=== PATIENT | female | born 1980 | race African-American/Black ===

== ENCOUNTER 2019-10-04 02:05 | Emergency (ER) | payer MEDICAID, OTHER ==
[~2019-10-04] VITALS: Ht 172.7 cm; Wt 73.0 kg
[2019-10-04] MEDS ORDERED: LORAZEPAM 1MG TABLET PO ONE (04:30)
[2019-10-04] MEDS ORDERED: CEFTRIAXONE SODIUM 1 G/VIAL IM ONE (06:30)
[2019-10-04] MEDS ORDERED: LIDOCAINE HCL 1% 20ML VIAL (Pyxis) INJ INFIL ONE (06:30)
[2019-10-04 07:30] VITALS: BP 131/74
== END 2019-10-04 07:31 | disposition home or self-care (01) ==
LOC: ER 02:05
DX: Z22.322 Carrier or suspected carrier of Methicillin resistant Staphylococcus aureus (principal); L73.9 Follicular disorder, unspecified; E11.9 Type 2 diabetes mellitus without complications; I10 Essential (primary) hypertension; F41.9 Anxiety disorder, unspecified; J45.909 Unspecified asthma, uncomplicated; Z88.0 Allergy status to penicillin; Z91.041 Radiographic dye allergy status
CPT/HCPCS: 96372; 99283; J0696; J3490